=== PATIENT | male | born 1950 | race Caucasian/White ===

== ENCOUNTER → 2019-07-23 12:10 | Outpatient (CLI) | payer OTHER, SELFPAY ==
--- NOTE | 2019-07-23 | DI.US.S_ITS ---
PROCEDURE: US SCROTUM INDICATIONS: HYDROCELE TECHNIQUE: Real-time scanning was performed of the scrotum and testicles, with image documentation. Color and pulse Doppler interrogation was performed of both testicles. COMPARISON: None. FINDINGS: Right: Testicle is normal in size at 1.9 x 3.0 x 3.8 cm, and homogenous in echotexture. Epididymis is normal in overall size and morphology. No hydrocele or varicoceles there is a large bowel hernia extending into the scrotum displacing both testes to the far right.. Overlying scrotal skin is normal in thickness. Left: Testicle is normal in size at 1.6 x 3.5 x 3.5 cm, and homogeneous in echotexture. Epididymis is normal in overall size and morphology. No hydrocele or varicoceles but there is a large bowel herniation extending into the scrotum displacing both testes to the far right. Overlying scrotal skin is normal in thickness. Doppler: Color and pulse Doppler demonstrate normal and symmetric arterial flow in both testicles. IMPRESSION: Large bowel hernia into the scrotum displacing a testicles bilaterally from left to right. The patient reports that this clinical circumstance has been present chronically. CT scanning may be warranted for surgical leading. No acute pain reported by the patient. Rather, chronic symptomatology. Dictated by: Ethan Martinez M.D. on 07/23/2019 at 15:29 Approved by: Ethan Martinez M.D. on 07/23/2019 at 15:32
[2019-07-23 13:52] LABS: Add Manual Diff / Slide Review NO; Basophils Absolute Auto 100 /uL (0-100); Basophils Percent Auto 1.2 % (0-2); Eosinophils Absolute Auto 300 /uL (0-450); Hematocrit 44.3 % (41-53); Hemoglobin 15.1 g/dL (13.5-17.5); Lymphocytes Absolute Auto 1700 /uL (1100-4500); Lymphocytes Percent Auto 23.3 % (25-40); Mean Corpuscular HGB Conc 34.2 % (30-36); Mean Corpuscular Hemoglobin 29.8 PG (26-34); Mean Corpuscular Volume 87.2 fL (80-100); Monocytes Absolute Auto 700 /uL (0-900); Monocytes Percent Auto 9.6 % (3-14); Neutrophils Absolute Auto 4400 /uL (1500-7000); Neutrophils Percent Auto 61.9 % (50-75); Platelet Count 112 X10^3/uL (150-400); Red Blood Cell Count 5.08 X10^6/uL (4.5-5.9); Red Cell Distribution Width 14.3 % (11.6-14.8); White Blood Cell Count 7.1 X10^3/uL (4.5-11.0)
[2019-07-23 13:56] LABS: Alanine Aminotransferase 12 IU/L (<50); Albumin 4.6 g/dL (3.5-5.0); Albumin Globulin Ratio 1.4 (1.0-2.8); Alkaline Phosphatase 110 U/L (38-126); Aspartate Aminotransferase 31 IU/L (17-59); Bilirubin Total 1.3 mg/dL (0.2-1.3); Blood Urea Nitrogen 16 mg/dL (9-20); Calcium 9.9 mg/dL (8.4-10.2); Carbon Dioxide 29 mmol/L (22-32); Chloride 103 mmol/L (98-107); Cholesterol 216 mg/dL (140-199); Estimated Glomerular Filt Rate > 60.0 mL/min (>60); Globulin 3.2 g/dL (1.7-4.1); Glucose 102 mg/dL (80-110); HDL Cholesterol 54 mg/dL (40-60); HEMOLYSIS < 15 (0-50); LDL Cholesterol Calculated 142 mg/dL (<100); Potassium 4.9 mmol/L (3.4-5.1); Sodium 140 mmol/L (137-145); Total Protein 7.8 g/dL (6.3-8.2); Triglycerides 102 mg/dL (35-150)
[2019-07-23 18:23] LABS: Vitamin D 25 Hydroxy (D3) 19.6 ng/mL (30.0-100.0)
== END ==
PROVIDERS: PCP Physician Assistant; Visit Provider Physician Assistant
DX: N43.3 Hydrocele, unspecified (principal); N50.89 Other specified disorders of the male genital organs; K40.90 Unilateral inguinal hernia, without obstruction or gangrene, not specified as recurrent; I10 Essential (primary) hypertension; E78.2 Mixed hyperlipidemia
CPT/HCPCS: 36415; 76870; 80053; 80061; 82306; 85025

== ENCOUNTER → 2019-08-22 11:44 | Outpatient (CLI) | payer OTHER, SELFPAY | PROVIDERS: PCP Physician Assistant; Visit Provider Specialist | DX: Z01.818 Encounter for other preprocedural examination (principal); I49.9 Cardiac arrhythmia, unspecified; K40.90 Unilateral inguinal hernia, without obstruction or gangrene, not specified as recurrent | CPT/HCPCS: 93005; 99213 ==

== ENCOUNTER → 2019-09-11 05:30 | Outpatient (CLI) | payer OTHER, SELFPAY ==
--- NOTE | 2019-09-11 | DI.ECHO.S_ITS ---
[place] [facility] +---------+ : : [address] : : : : [id number] : : : : Phone: [phone]+ Echocardiogram Report + + :Name: KRISTINA WHEELER Study Date: 09/11/2019 Height: 67 in : :[facility] Weight: 222 lb : : Gender: Male BSA: 2.1 m2 : :: 1950 Age: 69 yrs BP: 168/82 mmHg: :Reason For Study: jing, hypertension : : Performed By: LRF : :Referring: AMOL NAVA : + + Interpretation Summary Left ventricular wall thickness is mildly increased. The left ventricular ejection fraction is normal. There are no focal wall motion abnormalities. Diastolic parameters suggest a relaxation abnormality of the left ventricle, consistent with probable normal filling pressures. The RV function is normal by visual evaluation. Pulmonary artery pressures cannot be estimated because of the lack of a measurable TR jet velocity. The left atrium is moderately dilated. No hemodynamically significant valvular abnormalities. The patient had frequent PVCs during the exam. No significant change compared to the prior echo. Procedure: A two-dimensional transthoracic echocardiogram with color flow and Doppler was performed. The study quality was technically adequate. Comparison is made with the echocardiogram of 04/20/2016. The patient was in normal sinus rhythm during the exam. The patient had frequent PVCs during the exam. Periods of trigeminy and bigeminy noted during exam. Left Ventricle: Left ventricular wall thickness is mildly increased. The left ventricle is normal in size. The ejection fraction is estimated to be 55- 60%. The left ventricular ejection fraction is normal. There are no focal wall motion abnormalities. Diastolic parameters suggest a relaxation abnormality of the left ventricle, consistent with probable normal filling pressures. Right Ventricle: The right ventricle is normal size. The RV function is normal by visual evaluation. Atria: The left atrium is moderately dilated. The right atrium is mildly dilated. There is no Doppler evidence for an interatrial shunt. Mitral Valve: The mitral valve is normal in structure and function. There is trace mitral regurgitation. Aortic Valve: The aortic valve is trileaflet. The aortic valve opens well. There is mild aortic valve sclerosis. There is discrete nodular thickening of the non- coronary cusp. No aortic regurgitation is present. Tricuspid Valve: The tricuspid valve is normal in structure and function. There is a trace or physiologic amount of tricuspid regurgitation. Pulmonary artery pressures cannot be estimated because of the lack of a measurable TR jet velocity. Pulmonic Valve: The pulmonic valve is not well visualized. There is no pulmonic valvular regurgitation. Great Vessels: The aortic root is borderline dilated. The ascending aorta is normal in size. The IVC is of normal diameter and collapses greater than 50% with a sniff. This suggests a low right atrial pressure of 3 mm Hg. Pericardium/ Pleura There is no pericardial effusion. There is an anterior echo-free space consistent with a fat pad. MMode/2D Measurements & Calculations LVIDd: 4.9 cm LVOT diam: 2.3 cm LVIDs: 3.9 cm Ao root diam: 3.9 cm FS: 19.7 % Aortic Jxn: 3.0 cm EPSS: 1.5 cm asc Aorta Diam: 3.3 cm IVSd: 1.1 cm LVPWd: 1.0 cm LV martins. diameter/BSA (cm/m^2): 2.3 LV sys. diameter/BSA (cm/m^2): 1.9 LA A2 area: 26.7 cm2 RA long axis: 5.5 cm LA A4 area: 26.0 cm2 RA area: 21.5 cm2 LA length (vol): 6.4 cm RA vol: 71.1 ml LA vol: 91.9 ml RA : 33.7 ml/m2 LA vol index: 43.5 ml/m2 IVC diam: 0.94 cm RVD1 (basal): 3.6 cm RVD2 (mid): 2.9 cm Doppler Measurements & Calculations Ao V2 max: 103.6 cm/sec LVOT Max Prosper: 89.2 cm/sec Ao V2 mean: 72.3 cm/sec LV V1 max P.2 mmHg Ao max P.3 mmHg LV V1 VTI: 21.4 cm Ao mean P.4 mmHg MARGOT(I,D): 4.0 cm2 Ao V2 VTI: 23.0 cm MARGOT(V,D): 3.7 cm2 sev ratio: 0.93 MARGOT indexed to BSA (cm^2/m^2): 1.9 MV E max prosper: 89.9 cm/sec PA V2 max: 87.2 cm/sec MV A max prosper: 103.5 cm/sec PA V2 mean: 57.0 cm/sec MV E/A: 0.87 PA mean P.5 mmHg Med Peak E' Prosper: 4.6 cm/sec PA pr(Accel): 15.8 mmHg E/E' med: 19.4 PA Accel Time: 0.15 sec Lat Peak E' Prosper: 8.0 cm/sec E/E' lat: 11.2 E/e' average: 15.3 MV dec time: 0.19 sec MV P1/2t: 52.7 msec MV P1/2t max prosper: 85.3 cm/sec SV(LVOT): 91.3 ml MVA(P1/2t): 4.2 cm2 Electronically signed by: Eh Moody M.D. on Reading Physician:09/11/2019 09:00 AM
== END ==
PROVIDERS: PCP Physician Assistant; Referring Provider Physician Assistant; Visit Provider Physician Assistant
DX: I35.8 Other nonrheumatic aortic valve disorders (principal); I49.9 Cardiac arrhythmia, unspecified; I10 Essential (primary) hypertension; R00.8 Other abnormalities of heart beat
CPT/HCPCS: 93306

== ENCOUNTER → 2019-10-12 13:00 | Outpatient (CLI) | payer OTHER, SELFPAY ==
[2019-10-12 13:45] LABS: Blood Urea Nitrogen 20 mg/dL (9-20); Calcium 9.4 mg/dL (8.4-10.2); Carbon Dioxide 25 mmol/L (22-32); Chloride 104 mmol/L (98-107); Estimated Glomerular Filt Rate > 60.0 mL/min (>60); Glucose 104 mg/dL (80-110); HEMOLYSIS < 15 (0-50); Potassium 4.7 mmol/L (3.4-5.1); Sodium 138 mmol/L (137-145)
== END ==
PROVIDERS: PCP Physician Assistant; Referring Provider Internal Medicine Cardiovascular Disease; Visit Provider Internal Medicine Cardiovascular Disease
DX: I10 Essential (primary) hypertension (principal)
CPT/HCPCS: 36415; 80048

== ENCOUNTER → 2019-12-07 09:46 | Outpatient (CLI) | payer OTHER, SELFPAY ==
[2019-12-07 11:47] LABS: Cholesterol 200 mg/dL (140-199); HDL Cholesterol 65 mg/dL (40-60); LDL Cholesterol Calculated 117 mg/dL (<100); Triglycerides 91 mg/dL (35-150)
== END ==
PROVIDERS: PCP Physician Assistant; Referring Provider Internal Medicine Cardiovascular Disease; Visit Provider Internal Medicine Cardiovascular Disease
DX: E78.5 Hyperlipidemia, unspecified (principal)
CPT/HCPCS: 36415; 80061

== ENCOUNTER → 2020-01-05 13:33 | Outpatient (CLI) | payer OTHER, SELFPAY ==
[2020-01-07 02:18] LABS: COVID19 Sendout Not Detected (Not Detect)
== END ==
PROVIDERS: PCP Physician Assistant; Visit Provider Physician Assistant
DX: Z20.828 Contact with and (suspected) exposure to other viral communicable diseases (principal); Z01.818 Encounter for other preprocedural examination
CPT/HCPCS: 87635

== ENCOUNTER 2020-01-08 06:51 | Observation (INO) | payer OTHER, SELFPAY ==
[2020-01-01 10:40] VITALS: BMI 34.9
[2020-01-08] VITALS (15 sets, daily range): BP systolic 125–177; BP diastolic 69–94; PULSE 68–89; RESP 9–19; TEMP 35.9–37.1; O2SAT 92–99; BMI 33.6
[2020-01-08] MEDS: LACTATED RINGERS 1,000 ML 42 ML IV ×2 (07:10→09:45)
[2020-01-08] MEDS: CEFAZOLIN 2 GM/100 ML FROZ.PIGGY IV ×2 (07:55→11:08)
--- NOTE | 2020-01-08 07:56 | P.HP_ITS ---
History of Present Illness History of Present Illness Date Patient Seen: 01/08/20 Time Patient Seen: 07:56 Chief complaint: [id number] LEFT INGUINAL HERNIA Narrative: Patient is a gentleman here for repair of a left inguinal hernia that he has had chronically. Causes local symptoms in his biggest problem is it is so large he can not ride a bicycle anymore. His operation was delayed from August because of a new diagnosis of atrial fibrillation. He has seen a cardi ologist and then evaluated. Patient History Medical History (Updated 01/08/20 @ 07:57 by Reid Woodruff MD) Atrial fibrillation (Acute) Bigeminy (Acute) Frequent PVCs (Acute) HTN (hypertension) (Acute) Left inguinal hernia (Acute) Family & Social History Family History Brother Hypertension Heart disease Son Lymphoma Social History: household members none Tobacco & Substance use: Smoking Status Former smoker alcohol intake former Substance Use Type does not use Meds Home Medications and Allergies Home Medications Medication Instructions Recorded Confirmed Type cholecalciferol (vitamin D3) 25 1,000 unit PO DAILY 08/22/19 01/08/20 History mcg (1,000 unit) capsule diltiazem HCl 360 mg PO DAILY 01/07/20 01/07/20 History losartan 100 mg PO DAILY 01/07/20 01/07/20 History rosuvastatin 2.5 mg PO DAILY 01/07/20 01/07/20 History Allergies Allergy/AdvReac Type Severity Reaction Status Date / Time No Known Drug Allergies Allergy Verified 01/08/20 07:48 Review of Systems Review of Systems Narrative: Patient has no chest pain breathing issues cough or cold asthma. Denies black or bloody bowel movements. No seizures or blackouts. Exam Vital Signs (past 8 hours): - 01/08/20 07:22 Temperature 98.6 F Pulse Rate 70 Respiratory Rate 16 Blood Pressure 172/72 H Pulse Oximetry 97 Oxygen Delivery Method Room Air Narrative Exam Narrative: Cooperative no apparent distress. His eyes are nonicteric. Neck is supple. No bruit in the neck. His lungs are clear to auscultation no rales or rhonchi heart distant heart tones I do not hear a murmur gallop. His rate and rhythm a very regular this morning. Abdomen is protuberant soft. No ventral hernias appreciated no masses appreciated. Patient has a huge left inguinal hernia extending into his left hemiscrotum. This is not reducible. No hernia on the right was noted. Assessment & Plan Assessment & Plan narrative: Patient with a left inguinal hernia incarcerated for repair. I have discussed the procedure with him risks of bleeding infection injury to nerves which could cause chronic intermittent or continuous pain or numbness, injury to the vas deferens, injury to the testicle and recurrence were all discussed with him I explained to him the to the large size recurrence rates are little higher. I do plan to use mesh and he is agreeable to that. I also talked to him about the limitations of the operation afterward. He is also aware that the left hemiscrotum always be larger than normal. All questions were answered and will proceed accordingly
--- NOTE | 2020-01-08 08:15 | PM.PREOP ---
Pre-operative Note COVID-19 COVID-19 status: Negative Result date/Date tested (Pos, Neg/Pending): 01/06/20 Interval Note History & Physical reviewed/Exam performed by Physician: Yes Changes to H&P: No
--- NOTE | 2020-01-08 08:30 | SUR.OPER ---
Supine on padded OR bed, head on pillow, arms secured on padded arm boards at <90 degrees abduction, legs uncrossed, safety belt at thigh, tape over blanket over lower legs.
[2020-01-08] MEDS: BUPIVACAINE 0.5% (PF) VIAL 30 ML INJ (08:39)
[2020-01-08] MEDS: fentaNYL 100 MCG/2 ML INJ IV (11:37)
--- NOTE | 2020-01-08 11:38 | SUR.PHASEI ---
medicated for pain, unable to give a number but did desire medication. Returned to sleep
--- NOTE | 2020-01-08 12:02 | PM.OP.1 ---
Operative Date/Time/Diagnoses Date of procedure: 01/08/20 Time of procedure: 11:20 Pre-op diagnosis: Incarcerated left inguinal hernia extending well into the scrotum Post-op diagnosis: same (Contained a large amount of sigmoid colon that was adherent to the hernia sac.) Procedure & Clinicians Procedure: Repair with an ileopubic tract repair and an onlay of mesh (Earl) repair Same procedure as scheduled: Yes Indications: Huge symptomatic hernia left inguinal extending into the scrotum Surgeon: Reid Woodruff Facilities Maintenance Engineer: Chris Lindsay Anesthesia Type: General Operative Notes Findings: Large amount of sigmoid colon adhesed into the sac making it impossible to reduce this hernia. Very difficult operation with obliteration of much of the floor. This was a very difficult operation with 2 surgeons involved. It took 3 times longer than normal to perform this operation then a routine inguinal hernia. Closure Type: primary Specimen(s): none sent Prosthetic devices, grafts, tissues, transplants, or devices: 2 x 4 piece of mesh Prolene Estimated Blood Loss (mL): 50 Blood products transfused: none Procedure in detail: The patient was placed supine on the operating room table and underwent general LMA anesthesia. He was prepped and draped in the usual fashion including scrotum. Transverse incision was made overlying is internal ring and carried down level the external oblique. The external oblique was opened parallel with its fibers through the external ring. We encountered a huge cord and hernia sac that I could not dissect up and therefore chose to open the cremaster and the sac anteriorly and try to reduce the contents. This proved quite challenging. The contents were large loop of sigmoid colon and its mesentery. The I had to detach it using cautery and sharp dissection from adhesions to the hernia sac well into the scrotum. We finally freed it up and then could not reduce it entirely because the opening was not large enough therefore we had to divide muscle in order to increase the size of the opening into the peritoneal cavity so it could be completely reduced. Once this was accomplished were left with the you had hernia sac of peritoneum and a challenge to close the peritoneum and repair the hernia. First we identified the cord structures and them proximally as best we could from the preperitoneal structures and the attenuated floor. When we felt we had dissected proximally far enough to create a new internal ring we removed much of the hernia sac in order to make closure of the peritoneum possible. The peritoneum was closed a running 2 0 silk and really reduced this and the preperitoneal structures which had come into the field during repair back beneath the attenuated muscle wall. A nervous structure was encountered her that would have to be incorporated into the repair and therefore it was transected and removed. Identifying medial floor and lateral floor / ileopubic tract sutures were placed from the medial floor to the ileopubic tract and the edge of inguinal ligament. These were tied as we went until we had reformed an internal ring that was not good but not tight against the cord structures. The tip of a peon clamp any easily fit adjacent to it. With this accomplished a relaxing incision was made in the posterior lamella of the anterior rectus sheath. This took tension off of the sutured repair. I then placed placed a piece of mesh after Earl over this repair suturing it at the pubic tubercle, the inguinal ligament, the posterior lamella the rectus sheath medial to the relaxing incision, and superior and Lateral to the cord.. The testicle was pulled down and the external oblique was reapproximated with running 3 0 Vicryl suture. The subcu was closed with interrupted 3 0 Vicryl suture. The skin was closed with timbo. Dressing was applied, the patient was awakened and taken the recovery room good condition. Local anesthetic was infiltrated prior to closure of the skin. The testicle was pulled back down all the way to the base of the scrotum. The cord structures felt to be in normal anatomic position without twisting. Complications: none Post-operative Condition: stable Disposition: PACU Plan for aftercare: Due to the amount of dissection involved with the colon and the large long operation patient will be brought in for observation overnight.
[2020-01-08] MEDS: OXYCODONE/ACETAMINOPHEN 5/325 TABLET 1 TAB PO (12:04)
--- NOTE | 2020-01-08 12:12 | SUR.PHASEI ---
report called to floor, waiting for patient room to be cleaned for transfer. HOB elevated, eating yogurt. Drowsy, oriented, stating I'm sure glad you guys know what you're doing. Hand off to Yasmin Roe RN
[2020-01-08] MEDS: LACTATED RINGERS 1,000 ML 125 ML IV (13:36)
[2020-01-08] MEDS: dilTIAZem CD 180 MG CAP 360 MG PO (13:37)
--- NOTE | 2020-01-08 15:47 | PC.NURSE ---
Post-op: Late entry Arrived to room 218 at 1235. A&O X3. Dressing to L groin C/D/I with ice pack in place over gown. Patient denied pain as long as I don't move, declined Tylenol and/or Oxycodone when offered. Denies N/V. BT+, flatus+. Advanced to regular diet for dinner. Lungs CTA, HRR. 2-3+ edema to BLE's which patient reports is chronic. Also reports chronic numbness/tingling in bilateral feet. IVF per order, site in R FA WNL. SCD's to BLE's. Given urinal, encouraged to call for assist OOB when he needs to void. Oriented to room and call light. Belongings within reach, bed alarm on.
[2020-01-08] MEDS: GABAPENTIN 300 MG CAPSULE PO (20:11)
[2020-01-08] MEDS: ROSUVASTATIN 10 MG TABLET 2.5 MG PO (20:12)
[2020-01-08] MEDS: LOSARTAN 50 MG TABLET 100 MG PO (20:12)
[2020-01-09 00:13] VITALS: BP 159/92; PULSE 64; RESP 18; TEMP 36.8; O2SAT 97
[2020-01-09 05:00] VITALS: BP 149/83; PULSE 77; RESP 18; TEMP 36.7; O2SAT 96
[2020-01-09] MEDS: LOSARTAN 50 MG TABLET 100 MG PO (08:20)
[2020-01-09] MEDS: SENNOSIDES 8.6 MG TABLET 17.2 MG PO (08:20)
[2020-01-09] MEDS: dilTIAZem CD 180 MG CAP 360 MG PO (08:20)
[2020-01-09] MEDS: ROSUVASTATIN 10 MG TABLET 2.5 MG PO (08:20)
[2020-01-09] MEDS: GABAPENTIN 300 MG CAPSULE PO (08:21)
[2020-01-09 09:18] VITALS: BP 151/57; PULSE 70; RESP 16; TEMP 37.1; O2SAT 94
[2020-01-09] MEDS: BISACODYL 10 MG SUPP PR (11:42)
--- NOTE | 2020-01-09 12:03 | P.DS_ITS ---
History of Present Illness History of Present Illness Date Patient Seen: 01/09/20 Time Patient Seen: 12:03 Chief complaint: [id number] LEFT INGUINAL HERNIA Narrative: Patient is a gentleman here for repair of a left inguinal hernia that he has had chronically. Causes local symptoms in his biggest problem is it is so large he can not ride a bicycle anymore. His operation was delayed from August because of a new diagnosis of atrial fibrillation. He has seen a cardi ologist and then evaluated. Discharge Providers Provider Discharge Date: 01/09/20 Primary care physician: Stacey Helton PA-C Consults: 01/08/20 13:16 Consult to Discharge Planning Routine Comment: Discharge provider: Reid Woodruff MD Summary Hospital Course Discharge Diagnosis: Huge incarcerated left inguinal hernia chronic History of cardiac dysrhythmia(intermittent atrial fibrillation) chronic treated with medication History of alcoholism, Along with alcohol withdrawal, alcoholic hepatitis, possible alcoholic cirrhosis. Patient no longer uses alcohol. Obesity with a BMI of 33.7. Exam Vital Signs (past 8 hours): - 01/09/20 05:00 01/09/20 09:18 Temperature 98.1 F 98.8 F Pulse Rate 77 70 Respiratory Rate 18 16 Blood Pressure 149/83 H 151/57 H Pulse Oximetry 96 94 Oxygen Delivery Method Nasal Cannula Oxygen Flow Rate 0 Narrative Exam Narrative: Cooperative no apparent distress. Alert and oriented. Lungs are clear to auscultation no rales or rhonchi. Heart regular rate and rhythm at this time. No murmur gallop. Abdomen is distended and protuberant.(patient states this is his normal state.) There is some bruising about the incision left groin. The left hemiscrotum has some mild edema but there is no evidence of bleeding. Discharge Plan Discharge Plan Patient Disposition: Home Discharge comment: Your operation went well. You have some bruising around the incision which is not unexpected. If it becomes red please notify Dr. Woodruff/his office immediately. You may get a little redness around the timbo and that is not unusual. But redness spreading out away from the wound is unusual and you should let Dr. Woodruff know about that. Please use a laxative like milk of magnesia if you are having problems moving your bowels. Discharge Med Rec/Prescriptions Prescriptions: New oxycodone 5 mg tablet See Rx Instructions .ROUTE .COMPLEX PRN (Reason: painful procedure) Qty: 20 RF: 0 Continued cholecalciferol (vitamin D3) 1,000 unit capsule 1,000 unit PO DAILY RF: 0 diltiazem HCl 360 mg Capsule,Extended Release 24 Hr 360 mg PO DAILY RF: 0 losartan 100 mg Tablet 100 mg PO DAILY RF: 0 rosuvastatin 5 mg Tablet 2.5 mg PO DAILY RF: 0 Follow up/Referrals: Stacey Helton PA-C [Primary Care Provider] - Reid Woodruff MD [Physician] - As previously scheduled (If you do not have an appointment call my office and make an appointment to see me in about 10-12 days. If you do have an appointment please keep it. If you need to reach a doctor please call our office. If you reach an answering machine after hours listen to the entire message and at the end you will be connected with our page oxyacetylene torch operator. They will page the doctor on-call.) Discharge Orders: Discharge (Order); Ordered 01/09/20 Ordered By: Reid Woodruff Provider Discharge Instructions Diet: Diet as Tolerated Activity: Do not lift anything over 10 lb or strain for the next 6 weeks at least. You had a huge hernia and recurrence would be very difficult to repair. You may walk leisurely walk on flat surfaces. No pool or tub until you see your doctor and he gives me permission. Skin/Wound/Dressing Care Report to your healthcare provider any signs of infection, such as:: chills, fever, increased pain, unusual drainage and unusual redness Dressing: You may remove her dressing Tuesday morning and get in the shower. You may want to keep a dressing over it so the timbo do not catch on your clothing. Visit Report/Discharge Packet Instructions: CYRUS for Groin Hernia Discharge Data Primary Care Provider: Stacey Helton Attending Provider: Reid Woodruff Quality VTE Deep Vein Thrombosis/Pulmonary Embolism Present on Admission: No
[2020-01-09 13:32] VITALS: BP 145/58; PULSE 68; RESP 15; O2SAT 95
--- NOTE | 2020-01-09 13:49 | PC.NURSE ---
Received order from Dr. Woodruff to DC pt today. Pt received suppository around 1120 pt had small BM afterwards, had passed gas. VSS, Lungs CTA, BT present x4 denies pain only discomfort with certain movements. Dressing on his left groin has been changed timbo and wound area CDI, redness around incision site no drainage. Rt hand IV line discontinued and removed, patient tolerated the procedure. Went through all his DC packet and instructions patient verbalized understanding. Advised to call PCP and Dr. Woodruff to schedule a follow up appointment. Rx for Oxycodone is given and advised to take to his preferred pharmacy. Patient teaching given regarding his pain medication and wound care. Patient sitting in his recliner waiting for his son to pick him up.
--- NOTE | 2020-01-09 14:38 | CM.IDA ---
Initial DCP Assessment Note: Patient is a 69 yo male, resident of [place]. Patient is POD#1 from repair of a left inguinal hernia. PCP: Stcaey Helton Payer: Nhi CASTELLON Reviewed chart. Met w/patient to introduce role. Patient is eager to DC home today, and Dr Woodruff has completed the discharge. Patient lives alone, is active and indp. at baseline and explains his son will be staying with him for a few nights to assist as needed. P: DC today, home w/family via pov, no SW needs identified RYANN Montemayor Discharge Planning/Care Management CM Discharge Assessment Start: 01/09/20 14:35 Freq: Status: Active Protocol: Document 01/09/20 14:35 DARREN (Rec: 01/09/20 14:38 DARREN [email or web address]) Discharge Planning Assessment Assigned Water Restoration Technician RYANN Wong DPOA/Assigned Designee Name gage Razo Contact Information [phone] Advance Directives? No History Provided By Patient Prior Living Arrangements House Household Members none Type of transporation used prior to Drives own vehicle admit Independent with ADL's Yes Is patient alert and oriented? Yes Barriers to Discharge No Discharge Plan Home Transportation Arrangement Family Referrals Initiated None needed
== END 2020-01-09 14:53 | disposition home or self-care (01) ==
LOC: OR 06:58 → AC 10:54
PROVIDERS: Admitting Provider Specialist; PCP Physician Assistant; Referring Provider Specialist; Visit Provider Specialist
PROC: (CPT 49507; principal; 2020-01-08 07:45)
DX: K40.30 Unilateral inguinal hernia, with obstruction, without gangrene, not specified as recurrent (principal); I10 Essential (primary) hypertension; E78.5 Hyperlipidemia, unspecified; I48.91 Unspecified atrial fibrillation
CPT/HCPCS: 49507; C1781; G0378; J0690; J1100; J1170; J1885; J2250; J2405; J2704; J3010

== ENCOUNTER → 2020-01-23 09:08 | Outpatient (CLI) | payer OTHER, SELFPAY ==
[2020-01-10 13:01] VITALS: BMI 33.6
[2020-01-23 10:10] LABS: Add Manual Diff / Slide Review NO; Basophils Absolute Auto 100 /uL (0-100); Eosinophils Absolute Auto 300 /uL (0-450); Eosinophils Percent Auto 3.1 % (2-4); Hematocrit 34.2 % (41-53); Hemoglobin 12.1 g/dL (13.5-17.5); Lymphocytes Absolute Auto 1400 /uL (1100-4500); Mean Corpuscular HGB Conc 35.4 % (30-36); Mean Corpuscular Hemoglobin 30.2 PG (26-34); Mean Corpuscular Volume 85.2 fL (80-100); Monocytes Absolute Auto 700 /uL (0-900); Monocytes Percent Auto 8.4 % (3-14); Neutrophils Absolute Auto 6200 /uL (1500-7000); Neutrophils Percent Auto 71.5 % (50-75); Platelet Count 137 X10^3/uL (150-400); Red Blood Cell Count 4.01 X10^6/uL (4.5-5.9); Red Cell Distribution Width 13.7 % (11.6-14.8); White Blood Cell Count 8.6 X10^3/uL (4.5-11.0)
[2020-01-23 10:23] LABS: Hemoglobin A1C% w Est Avg Glu 5.5 % (4.0-6.0)
[2020-01-23 10:44] LABS: Alanine Aminotransferase 13 IU/L (<50); Albumin 4.2 g/dL (3.5-5.0); Albumin Globulin Ratio 1.4 (1.0-2.8); Alkaline Phosphatase 145 U/L (38-126); Aspartate Aminotransferase 25 IU/L (17-59); BUN Creatinine Ratio 20.2 (6-22); Bilirubin Total 0.6 mg/dL (0.2-1.3); Blood Urea Nitrogen 19 mg/dL (9-20); Calcium 10.1 mg/dL (8.4-10.2); Carbon Dioxide 25 mmol/L (22-32); Chloride 104 mmol/L (98-107); Estimated Glomerular Filt Rate > 60.0 mL/min (>60); Globulin 3.1 g/dL (1.7-4.1); Glucose 98 mg/dL (80-110); HEMOLYSIS < 15 (0-50); Potassium 4.3 mmol/L (3.4-5.1); Sodium 138 mmol/L (137-145); Total Protein 7.3 g/dL (6.3-8.2)
[2020-01-23 10:49] LABS: Vitamin D 25 Hydroxy (D3) 36.6 ng/mL (30.0-100.0)
[2020-01-23 11:15] LABS: TSH w/ Reflex to FT4 1.26 uIU/mL (0.47-4.68)
[2020-01-23 11:33] LABS: Vitamin B12 340 pg/mL (239-931)
[2020-01-25 14:36] LABS: Albumin 3.8 g/dL (2.9-4.4); Alpha-1-Globulin 0.2 g/dL (0.0-0.4); Alpha-2-Globulin 0.8 g/dL (0.4-1.0); Gamma Globulin 0.8 g/dL (0.4-1.8); Globulin Total 2.7 g/dL (2.2-3.9); Protein, Total 6.5 g/dL (6.0-8.5)
== END ==
PROVIDERS: PCP Physician Assistant; Referring Provider Physician Assistant; Visit Provider Physician Assistant
DX: D47.2 Monoclonal gammopathy (principal); E53.8 Deficiency of other specified B group vitamins; R73.01 Impaired fasting glucose; G60.9 Hereditary and idiopathic neuropathy, unspecified; I10 Essential (primary) hypertension; E03.9 Hypothyroidism, unspecified; E55.9 Vitamin D deficiency, unspecified
CPT/HCPCS: 36415; 80053; 82306; 82607; 83036; 84155; 84165; 84443; 85025

== ENCOUNTER → 2020-03-17 11:47 | Outpatient (CLI) | payer OTHER, SELFPAY ==
[2020-01-10 13:01] VITALS: BMI 33.6
--- NOTE | 2020-03-17 11:48 | DI.US.S_ITS ---
PROCEDURE: US PERIPH VENOUS LOW EXTREM RT INDICATIONS: EDEMA TECHNIQUE: Real-time imaging, as well as color and pulse Doppler interrogation, were performed of the lower extremity deep veins from the inguinal ligament to the popliteal fossa. COMPARISON: None. FINDINGS: The common femoral, femoral and popliteal veins are normally compressible, and free of intraluminal thrombus. Color and pulse Doppler demonstrate normal phasic intraluminal flow. There is normal augmentation response to distal compression maneuver. IMPRESSION: No DVT in the right lower extremity. Dictated by: Rustam Foreman M.D. on 03/17/2020 at 12:27 Approved by: Rustam Foreman M.D. on 03/17/2020 at 12:28
== END ==
PROVIDERS: PCP Physician Assistant; Referring Provider Internal Medicine Hematology & Oncology; Visit Provider Internal Medicine Hematology & Oncology
DX: R60.0 Localized edema (principal); D47.2 Monoclonal gammopathy; M79.89 Other specified soft tissue disorders
CPT/HCPCS: 93971

== ENCOUNTER → 2020-07-17 15:11 | Outpatient (CLI) | payer OTHER, SELFPAY ==
[2020-01-10 13:01] VITALS: BMI 33.6
== END ==
PROVIDERS: PCP Physician Assistant; Referring Provider General Practice; Visit Provider General Practice
DX: K74.60 Unspecified cirrhosis of liver (principal)
CPT/HCPCS: 36415; 85610

== ENCOUNTER → 2020-10-07 11:13 | Outpatient (CLI) | payer OTHER, SELFPAY ==
[2020-01-10 13:01] VITALS: BMI 33.6
[2020-10-07 12:20] LABS: COVID19 -Nasal RAPID Negative (Negative)
== END ==
PROVIDERS: PCP Physician Assistant; Visit Provider Specialist
DX: Z20.822 Contact with and (suspected) exposure to COVID-19 (principal)
CPT/HCPCS: 87635; C9803

== ENCOUNTER 2020-10-08 10:12 | Day surgery (SDC) | payer OTHER, SELFPAY ==
[2020-01-10 13:01] VITALS: BMI 33.6
[2020-10-08] VITALS (8 sets, daily range): BP systolic 138–157; BP diastolic 59–77; PULSE 56–75; RESP 12–20; TEMP 36.2–36.3; O2SAT 96–98; BMI 32.3
--- NOTE | 2020-10-08 | DI.RAD.S_ITS ---
PROCEDURE: XR CHEST 1V INDICATIONS: POST PORT A CATH TECHNIQUE: One view of the chest was acquired. COMPARISON: [facility], , CHEST 1 VIEW, 04/20/2016, 11:24. [facility], , CHEST 2 VIEW, 04/19/2016, 9:57. FINDINGS: Surgical changes and devices: Normal positioning of Port-A-Cath, without pneumothorax.. Lungs and pleura: Lungs are difficult to accurately assess due to relatively prominent reduced inspiratory volume. There is either mild pulmonary edema or crowding of bronchovascular markings producing reduced quality of visualization across the lungs bilaterally. A Port-A-Cath has been placed in normal position without pneumothorax.. No pleural effusions or pneumothorax. Mediastinum: Mediastinal contours appear normal. Heart size is normal. Bones and chest wall: No suspicious bony lesions. Overlying soft tissues appear unremarkable. IMPRESSION: Normal positioning of Port-A-Cath, without pneumothorax. Reduced inspiratory volume bilaterally. Dictated by: Ethan Martinez M.D. on 10/08/2020 at 13:40 Approved by: Ethan Martinez M.D. on 10/08/2020 at 13:57
[2020-10-08] MEDS: LACTATED RINGERS 1,000 ML 42 ML IV (10:54)
--- NOTE | 2020-10-08 11:53 | PM.HP.1 ---
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 He is about to undergo chemotherapy and I was asked to place a port. He is right-hand dominant. No metastatic disease to his lungs. Patient History Medical History Atrial fibrillation Bigeminy Cirrhosis Edema Frequent PVCs GERD (gastroesophageal reflux disease) Hard of hearing Hepatitis HTN (hypertension) Left inguinal hernia Surgical History H/O left inguinal hernia repair (~01/08/20) History of colonoscopy with polypectomy S/P right colectomy (~08/12/20) Family & Social History Family History Brother Hypertension Heart disease Son Lymphoma Social History: household members none Tobacco & Substance use: Tobacco type cigarettes Smoking Status Former smoker alcohol intake former Substance Use Type does not use Meds Home Medications and Allergies Home Medications Medication Instructions Recorded Confirmed Type diltiazem HCl 360 mg PO DAILY 01/07/20 10/08/20 History losartan 100 mg PO DAILY 01/07/20 10/08/20 History rosuvastatin 2.5 mg PO DAILY 01/07/20 10/08/20 History chlorthalidone 25 mg PO DAILY 04/10/20 10/08/20 History cholecalciferol (vitamin D3) 50 mcg PO DAILY 10/08/20 10/08/20 History [Vitamin D3] Allergies Allergy/AdvReac Type Severity Reaction Status Date / Time No Known Drug Allergies Allergy Verified 10/08/20 10:34 Review of Systems Review of Systems Narrative: Patient denies any heart or breathing problems. No cough or cold. No chest pain but he does have hypertension. Does have a history of cirrhosis. Exam Narrative Exam Narrative: Cooperative no apparent distress. Eyes nonicteric. Neck is supple. No scars. Lungs are clear to auscultation no rales or rhonchi. Heart very distant tones. No murmur heard. Abdomen is protuberant soft. He has multiple scars on his abdominal wall from a robotic procedure and eschar across his lower mid abdomen transversely. Assessment & Plan Assessment & Plan narrative: Patient with a colon cancer metastatic to lymph nodes for Port-A-Cath. I have discussed the operation with him. Discussed the nature of a port. Risks of bleeding, infection, lung collapse which might require a chest tube, and DVT which could cause arm swelling or pulmonary embolism were all discussed with him. He appears to understand wished to proceed. He was instructed that if he developed arm swelling to let his doctors know. Will place it on his left not dominant side. There is no rash or skin lesion in that area. Will place either in the subclavian or in the internal jugular if possible
--- NOTE | 2020-10-08 12:12 | PM.PREOP ---
Pre-operative Note COVID-19 COVID-19 status: Negative Result date/Date tested (Pos, Neg/Pending): 10/07/20 Interval Note History & Physical reviewed/Exam performed by Physician: Yes Changes to H&P: No
[2020-10-08] MEDS: CEFAZOLIN 2 GM/100 ML FROZ.PIGGY IV (12:22)
--- NOTE | 2020-10-08 12:49 | SUR.OPER ---
Supine on padded OR bed, head on pillow, arm padded and tucked at side, legs uncrossed, safety belt at thigh, tape over blanket over lower legs .
[2020-10-08] MEDS: LIDOCAINE 1% 30 ML INJ (12:55)
[2020-10-08] MEDS: HEPARIN 5,000 UNIT, SODIUM CHLORIDE 0.9% 50 ML IV (12:56)
--- NOTE | 2020-10-08 13:23 | P.OP_ITS ---
Operative Date/Time/Diagnoses Date of procedure: 10/08/20 Time of procedure: 13:23 Pre-op diagnosis: Colon cancer metastatic to lymph nodes Post-op diagnosis: same Procedure & Clinicians Procedure: Left subclavian Port-A-Cath. Same procedure as scheduled: Yes Indications: Need for IV access for chemotherapy Surgeon: Reid Woodruff Click Yes if Unassisted: Yes Anesthesia Type: General Operative Notes Findings: Tip appeared to be in the SVC. Patient appears to have a large globular heart. Closure Type: primary Specimen(s): none sent Prosthetic devices, grafts, tissues, transplants, or devices: High profile Port-A-Cath Applied: catheter Estimated Blood Loss (mL): 7 Blood products transfused: none Procedure in detail: Patient is placed supine on the operating room table unde rwent general LMA anesthesia. A roll was placed between his shoulder blades and he was prepped and draped in the usual fashion. Local anesthetic was infiltrated in field block fashion needs left clavicle. Transverse incision was made and carried into subcu fat. A pocket was created inferior to the incision to hold the port. The patient was placed into Trendelenburg and the needle was inserted on 1st attempt into the subclavian vein. The guidewire was passed through the needle and the needle was removed. The port was placed into the pocket and the length tapered to what appeared to be in appropriate length. It was difficult to tell because his large globular heart. After tapering the length of the catheter the guidewire was used to pass a dilator and introducer over it. The guidewire and dilator were removed leaving the introducer in place. The catheter was passed through the introducer and the introducer peeled away leaving the catheter tip in what appeared to be the superior vena cava. The port was aspirated and flushed with heparinized saline. It was fixed to the chest wall with interrupted 2 0 silk sutures. The subQ was closed with interrupted 3-0 Vicryl and the skin was closed a running 4-0 Vicryl subcuticular stitch and Steri-Strips. Dressing was applied the patient was taken the recovery area in good condition. Complications: none Post-operative Condition: stable Disposition: PACU
--- NOTE | 2020-10-08 14:07 | SUR.PHASEII ---
Pt up to bathroom ambulatory without difficulty. Waiting for pickup from son. VSS. AOx4.
== END 2020-10-08 14:48 | disposition home or self-care (01) ==
PROVIDERS: PCP Physician Assistant; Referring Provider Specialist; Visit Provider Specialist
PROC: (CPT 36561; principal; 2020-10-08 12:15)
DX: C18.9 Malignant neoplasm of colon, unspecified (principal); Z45.2 Encounter for adjustment and management of vascular access device; K21.9 Gastro-esophageal reflux disease without esophagitis; I10 Essential (primary) hypertension; K74.60 Unspecified cirrhosis of liver; N18.9 Chronic kidney disease, unspecified; D64.9 Anemia, unspecified
CPT/HCPCS: 36561; 71045; 76000; C1788; J0690; J1100; J1644; J2405; J2704; J3010

== ENCOUNTER → 2020-11-11 11:00 | Outpatient (CLI) | payer OTHER, SELFPAY ==
[2020-01-10 13:01] VITALS: BMI 33.6
[2020-11-11 11:22] LABS: COVID19 -Nasal RAPID Negative (Negative)
== END ==
PROVIDERS: PCP Physician Assistant; Visit Provider Physician Assistant
DX: R05 Cough (principal); R09.89 Other specified symptoms and signs involving the circulatory and respiratory systems; Z20.822 Contact with and (suspected) exposure to COVID-19
CPT/HCPCS: 87635

== ENCOUNTER → 2020-11-27 10:17 | Outpatient (CLI) | payer MEDICARE, SELFPAY ==
[2020-11-27] MEDS: COVID-19 VACC #1, MRNA(MOD) 100 MCG/0.5 ML VIAL IM (10:36)
== END ==
PROVIDERS: Visit Provider Internal Medicine
DX: Z23 Encounter for immunization (principal)
CPT/HCPCS: 0011A; 91301

== ENCOUNTER → 2020-12-25 08:42 | Outpatient (CLI) | payer MEDICARE, SELFPAY ==
[2020-01-10 13:01] VITALS: BMI 33.6
[2020-12-25] MEDS: COVID-19 VACC #2, MRNA(MOD) 100 MCG/0.5 ML VIAL IM (08:58)
== END ==
PROVIDERS: PCP Physician Assistant; Visit Provider Internal Medicine
DX: Z23 Encounter for immunization (principal)
CPT/HCPCS: 0012A; 91301

== ENCOUNTER 2021-02-14 17:43 | Emergency (ER) | payer OTHER, SELFPAY ==
[2020-01-10 13:01] VITALS: BMI 33.6
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
[2021-02-14 17:55] VITALS: BP 168/74; PULSE 71; RESP 20; TEMP 36.8; O2SAT 99; BMI 32.5
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
[2021-02-14] MEDS: MORPHINE 4 MG/ML INJ IM (18:35)
[2021-02-14] MEDS: HYDROCODONE/ACET 5/325 PREPACK 1 BOTTLE MISC (19:20)
== END 2021-02-14 19:29 | disposition home or self-care (01) ==
PROVIDERS: Emergency Provider Emergency Medicine; PCP Physician Assistant
DX: S42.001A Fracture of unspecified part of right clavicle, initial encounter for closed fracture (principal); S22.41XA Multiple fractures of ribs, right side, initial encounter for closed fracture; W19.XXXA Unspecified fall, initial encounter
CPT/HCPCS: 71101; 73030; 96372; 99283; 99284; J2270

== ENCOUNTER → 2021-02-19 16:31 | Outpatient (CLI) | payer OTHER, SELFPAY ==
[2020-01-10 13:01] VITALS: BMI 33.6
[2021-02-19 17:45] LABS: Add Manual Diff / Slide Review NO; Basophils Absolute Auto 0 /uL (0-100); Basophils Percent Auto 0.8 % (0-2); Eosinophils Absolute Auto 100 /uL (0-450); Eosinophils Percent Auto 1.3 % (2-4); Hematocrit 34.2 % (41-53); Hemoglobin 11.6 g/dL (13.5-17.5); Lymphocytes Absolute Auto 1100 /uL (1100-4500); Lymphocytes Percent Auto 21.6 % (25-40); Mean Corpuscular Hemoglobin 31.6 PG (26-34); Mean Corpuscular Volume 92.8 fL (80-100); Monocytes Absolute Auto 700 /uL (0-900); Monocytes Percent Auto 14.4 % (3-14); Neutrophils Absolute Auto 3100 /uL (1500-7000); Neutrophils Percent Auto 61.9 % (50-75); Platelet Count 91 X10^3/uL (150-400); Red Blood Cell Count 3.68 X10^6/uL (4.5-5.9); Red Cell Distribution Width 16.4 % (11.6-14.8)
[2021-02-19 17:55] LABS: BUN Creatinine Ratio 28.7 (6-22); Blood Urea Nitrogen 25 mg/dL (9-20); Calcium 9.4 mg/dL (8.4-10.2); Carbon Dioxide 28 mmol/L (22-32); Chloride 104 mmol/L (98-107); Cholesterol 161 mg/dL (140-199); Estimated Glomerular Filt Rate > 60.0 mL/min (>60); Glucose 102 mg/dL (80-110); HDL Cholesterol 84 mg/dL (40-60); HEMOLYSIS < 15 (0-50); LDL Cholesterol Calculated 61 mg/dL (<100); Potassium 3.8 mmol/L (3.4-5.1); Sodium 138 mmol/L (137-145); Triglycerides 80 mg/dL (35-150)
== END ==
PROVIDERS: PCP Physician Assistant; Referring Provider Internal Medicine Cardiovascular Disease; Visit Provider Internal Medicine Cardiovascular Disease
DX: I10 Essential (primary) hypertension (principal)
CPT/HCPCS: 36415; 80048; 80061; 85025

== ENCOUNTER → 2021-03-09 09:13 | Outpatient (CLI) | payer OTHER, SELFPAY ==
[2020-01-10 13:01] VITALS: BMI 33.6
--- NOTE | 2021-03-09 09:14 | DI.US.S_ITS ---
PROCEDURE: US [facility] VENOUS LOW EXTREM BI INDICATIONS: LEG SWELLING. RIGHT > LEFT. TECHNIQUE: Real-time imaging, as well as color and pulse Doppler interrogation, were performed of the deep veins of both legs from the inguinal ligament to the popliteal fossa. COMPARISON: [facility], , US [facility] VENOUS LOW EXTREM RT, 03/17/2020, 12:01. FINDINGS: Right: The common femoral, femoral and popliteal veins are normally compressible, and free of intraluminal thrombus. Color and pulse Doppler demonstrate normal phasic intravascular flow. There is normal augmentation response to distal compression maneuver. Left: The common femoral, femoral and popliteal veins are normally compressible, and free of intraluminal thrombus. Color and pulse Doppler demonstrate normal phasic intravascular flow. There is normal augmentation response to distal compression maneuver. Bilateral calf and ankle edema can be seen. IMPRESSION: Negative for deep venous thrombosis. Dictated by: Estuardo Dominguez M.D. on 03/09/2021 at 9:23 Approved by: Estuardo Dominguez M.D. on 03/09/2021 at 9:23
== END ==
PROVIDERS: PCP Physician Assistant; Referring Provider Internal Medicine Hematology & Oncology; Visit Provider Internal Medicine Hematology & Oncology
DX: R22.43 Localized swelling, mass and lump, lower limb, bilateral (principal); M79.89 Other specified soft tissue disorders
CPT/HCPCS: 93970

== ENCOUNTER → 2021-10-14 09:21 | Outpatient (CLI) | payer OTHER, SELFPAY ==
[2020-01-10 13:01] VITALS: BMI 33.6
[2021-10-14 10:23] LABS: COVID19 -Nasal RAPID Negative (Negative)
== END ==
PROVIDERS: PCP Physician Assistant; Visit Provider Surgery
DX: Z01.812 Encounter for preprocedural laboratory examination (principal); Z20.822 Contact with and (suspected) exposure to COVID-19
CPT/HCPCS: 87635; C9803

== ENCOUNTER 2021-10-15 08:17 | Day surgery (SDC) | payer OTHER, SELFPAY ==
[2020-01-10 13:01] VITALS: BMI 33.6
--- NOTE | 2021-10-15 | PATH_ITS ---
[facility] Accession Number: [id number] . 01 Material submitted: . PART A: sigmoid colon - SIGMOID POLYP PART B: colon - PROXIMAL ANASTOMOSIS PART C: colon - DISTAL ANASTOMOSIS . 02 Diagnosis: A. Sigmoid Colon, Polyp, Biopsy: Tubulovillous adenoma. No evidence of malignancy or high-grade dysplasia. . B. Proximal Anastomosis, Biopsy: Mildly active enteritis. Negative for granulomas, dysplasia and malignancy. . C. Distal Anastomosis, Biopsy: Tubular adenoma. [facility] 10/19/2021 1320 Local . 02 Electronically signed: . Citlali Damon MD, Pathologist NPI- [id number] . 01 Gross description: . Part A: SIGMOID POLYP: Received in formalin are 3 fragment(s) of holcomb, soft tissue measuring 0.5 x 0.5 x 0.5 cm to 0.4 x 0.4 x 0.4 cm submitted entirely in 1 cassette(s) Part B: PROXIMAL ANASTOMOSIS: Received in formalin are multiple fragment(s) of holcomb, soft tissue measuring 1.2 x 0.6 x 0.2 cm in aggregate submitted entirely in 1 cassette(s) Part C: DISTAL ANASTOMOSIS: Received in formalin is 1 fragment(s) of holcomb, soft tissue measuring 0.5 x 0.4 x 0.2 cm submitted entirely in 1 cassette(s) /[facility] 10/18/2021 1849 Local . 02 Pathologist provided ICD-10: D12.6, D12.5 . 02 CPT . 493179, 642423, 646094 Specimen Comment: A courtesy copy of this report has been sent to [phone] Performed at: 01 [facility] [address] [id number] MD Brian Baker MD Phone: [phone] Performed at: 02 [facility] [id number] [place] [id number] MD Citlali Damon MD Phone: [phone]
[2021-10-15 08:37] VITALS: BP 145/76; PULSE 69; RESP 18; TEMP 36.1; O2SAT 98; BMI 31.4
[2021-10-15 08:51] VITALS: BMI 31.4
[2021-10-15] MEDS: LACTATED RINGERS 1,000 ML 42 ML IV (08:52)
--- NOTE | 2021-10-15 08:56 | PM.HP.1 ---
History of Present Illness History of Present Illness Date Patient Seen: 10/15/21 Time Patient Seen: 08:56 Chief complaint: DX COLONOSCOPY Narrative: 71-year-old man with history of colon cancer status post colon resection. He is due for his surveillance colonoscopy. No problems to report. Patient History Medical History Atrial fibrillation Bigeminy Cirrhosis Edema Frequent PVCs GERD (gastroesophageal reflux disease) Hard of hearing Hepatitis HTN (hypertension) Left inguinal hernia Surgical History H/O left inguinal hernia repair (~01/08/20) History of colonoscopy with polypectomy S/P right colectomy (~08/12/20) Family & Social History Family History Brother Hypertension Heart disease Son Lymphoma Social History: household members none Tobacco & Substance use: Tobacco type cigarettes Smoking Status Former smoker alcohol intake former alcohol intake frequency 0-2 drinks per day Substance Use Type does not use Meds Home Medications and Allergies Home Medications Medication Instructions Recorded Confirmed Type diltiazem HCl 360 mg capsule,24 360 mg PO DAILY 01/07/20 08/31/21 History hr,extended release losartan 100 mg tablet 100 mg PO DAILY 01/07/20 08/31/21 History rosuvastatin 5 mg tablet 2.5 mg PO DAILY 01/07/20 08/31/21 History cholecalciferol (vitamin D3) 50 50 mcg PO DAILY 10/08/20 10/15/21 History mcg (2,000 unit) capsule (Vitamin D3) Allergies Allergy/AdvReac Type Severity Reaction Status Date / Time No Known Drug Allergies Allergy Verified 10/15/21 08:50 Exam Vital Signs (past 8 hours): - 10/15/21 08:37 Temperature 97 F L Pulse Rate 69 Respiratory Rate 18 Blood Pressure 145/76 H Pulse Oximetry 98 Oxygen Delivery Method Room Air Const General: healthy appearing Resp Effort & Inspection: normal respiratory effort GI Palpation: soft Assessment & Plan Assessment and plan (1) History of colon cancer: Status: Acute Plan 71-year-old man needing a surveillance colonoscopy due to history of colon cancer. Risks and benefits of colonoscopy reviewed. He would like to proceed. COVID-19 COVID-19 status: Negative Result date/Date tested (Pos, Neg/Pending): 10/14/21 Time Spent With Patient Critical Care time: I spent a total of [] minutes of critical care time on this patient's care today; this time is exclusive of procedural time.
[2021-10-15] MEDS: fentaNYL 250 MCG/5 ML INJ IV (09:20)
[2021-10-15] MEDS: MIDAZOLAM 5 MG/5 ML VIAL IV (09:20)
--- NOTE | 2021-10-15 09:34 | PM.OP.COLON ---
Operative Date/Time/Diagnoses Date of procedure: 10/15/21 Time of procedure: 09:34 Pre-op diagnosis: History of colon cancer Post-op diagnosis: same Procedure & Clinicians Study performed: Surveillance colonoscopy Same procedure as scheduled: Yes Indications: History of colon cancer Surgeon: Candelario Gayle Procedure Notes SCOAP/Timeout: Yes Procedure in detail: Procedure: The patient was brought to the endoscopy suite, placed in left lateral decubitus position. The patient was connected to monitoring devices. A time-out was performed. Sedation was administered. Once the patient was adequately sedated, a digital rectal exam was performed and was normal. The scope was then inserted and advanced to the ileocolic anastomosis. There was some hypertrophied tissue along the anastomosis which could be hypertrophied small bowel mucosa or and adenoma. Several biopsies were taken with cold Jumbo forceps and sent as proximal anastomosis. The scope was then slowly withdrawn over greater than 6 minutes. Mucosa was thoroughly inspected. There was a the mm pedunculated polyp in the descending/sigmoid colon proximal to the distal anastomosis. It was removed with cold snare. There was a small polyp at the distal anastomosis removed with Jumbo forceps. The scope was retroflexed in the rectum. No abnormalities were noted. The scope was straightened and removed. The patient was awakened and brought to recovery. Versed: 5 mg Fentanyl: 75 mcg EBL: 5 mL Findings: Hypertrophied tissue near the proximal anastomosis, pedunculated polyp in the left colon proximal to the distal anastomosis and small polyp at the distal anastomosis Scope withdrawal time: 9 Sedation minutes: 24 Post-procedure Recommendations: Will call with biopsy results Disposition: PACU
[2021-10-15 09:38] VITALS: BP 106/57; PULSE 60; RESP 14; TEMP 36.4; O2SAT 95
[2021-10-15 09:48] VITALS: BP 116/67; BP 120/50; PULSE 56; PULSE 61; RESP 14; RESP 16; O2SAT 96; O2SAT 97
[2021-10-15 09:53] VITALS: BP 129/64; PULSE 62; RESP 16; O2SAT 96
[2021-10-15 09:58] VITALS: BP 129/68; PULSE 60; RESP 16; TEMP 36.7; O2SAT 96
[2021-10-15 10:06] VITALS: BP 129/68; PULSE 62; RESP 18; TEMP 36.2; O2SAT 98
--- NOTE | 2021-10-15 10:21 | SUR.PHASEII ---
10/15/21-1020-ok to go home by Taxi per Dr Gayle.
--- NOTE | 2021-10-15 10:25 | SUR.OPER ---
pt will be traveling to home at discharge via taxi. Dr Gayle aware and gives consent for pt to be discharged.
== END 2021-10-15 10:27 | disposition home or self-care (01) ==
PROVIDERS: PCP Physician Assistant; Referring Provider Surgery; Visit Provider Surgery
PROC: 0DJD8ZZ Inspection of Lower Intestinal Tract, Via Natural or Artificial Opening Endoscopic (ICD-10-PCS; CPT 45378; principal; 2021-10-15 09:30)
DX: Z12.11 Encounter for screening for malignant neoplasm of colon (principal); Z85.038 Personal history of other malignant neoplasm of large intestine; Z90.49 Acquired absence of other specified parts of digestive tract; D12.5 Benign neoplasm of sigmoid colon; D12.6 Benign neoplasm of colon, unspecified; K52.9 Noninfective gastroenteritis and colitis, unspecified
CPT/HCPCS: 45385; 45380; 99152; 99153; J2250; J3010

== ENCOUNTER → 2022-05-12 11:41 | Outpatient (CLI) | payer OTHER, SELFPAY ==
[2020-01-10 13:01] VITALS: BMI 33.6
[2022-05-12 13:42] LABS: Add Manual Diff / Slide Review NO; Basophils Absolute Auto 100 /uL (0-100); Basophils Percent Auto 1.1 % (0-2); Eosinophils Absolute Auto 200 /uL (0-450); Eosinophils Percent Auto 4.1 % (2-4); Hematocrit 35.5 % (41-53); Hemoglobin 12.2 g/dL (13.5-17.5); Lymphocytes Absolute Auto 800 /uL (1100-4500); Lymphocytes Percent Auto 16.2 % (25-40); Mean Corpuscular HGB Conc 34.3 % (30-36); Mean Corpuscular Volume 93.2 fL (80-100); Monocytes Absolute Auto 400 /uL (0-900); Monocytes Percent Auto 8.5 % (3-14); Neutrophils Absolute Auto 3500 /uL (1500-7000); Neutrophils Percent Auto 70.1 % (50-75); Platelet Count 112 X10^3/uL (150-400); Red Blood Cell Count 3.81 X10^6/uL (4.5-5.9); Red Cell Distribution Width 13.6 % (11.6-14.8)
[2022-05-12 13:53] LABS: BUN Creatinine Ratio 20.2 (6-22); Blood Urea Nitrogen 25 mg/dL (9-20); Calcium 8.8 mg/dL (8.4-10.2); Carbon Dioxide 24 mmol/L (22-32); Chloride 104 mmol/L (98-107); Cholesterol 173 mg/dL (140-199); Estimated Glomerular Filt Rate > 60 mL/min (>60); Glucose 92 mg/dL (80-110); HEMOLYSIS < 15 (0-50); Potassium 4.7 mmol/L (3.4-5.1); Sodium 138 mmol/L (137-145); Triglycerides 52 mg/dL (35-150)
[2022-05-12 14:03] LABS: HDL Cholesterol 117 mg/dL (40-60); LDL Cholesterol Calculated 46 mg/dL (<100)
[2022-05-13 17:23] LABS: Hep C Virus Ab w/Reflex Quant NEGATIVE s/c (NEGATIVE)
== END ==
PROVIDERS: PCP Physician Assistant; Referring Provider Internal Medicine Cardiovascular Disease; Visit Provider Internal Medicine Cardiovascular Disease
DX: E78.5 Hyperlipidemia, unspecified (principal); I10 Essential (primary) hypertension; Z11.59 Encounter for screening for other viral diseases
CPT/HCPCS: 36415; 80048; 80061; 85025; 86803

== ENCOUNTER → 2022-05-18 06:34 | Outpatient (CLI) | payer OTHER, SELFPAY ==
[2020-01-10 13:01] VITALS: BMI 33.6
--- NOTE | 2022-05-18 | DI.US.S_ITS ---
PROCEDURE: US ABD AORTA ANEURYSM SCREEN INDICATIONS: Abdominal aortic aneurysm screening TECHNIQUE: Real time scanning was performed of the aorta and iliac arteries, with image documentation. COMPARISON: None. FINDINGS: Aorta: Proximal aortic is not well seen due to bowel gas. Mid-aorta measures approximately 2.3 cm. The views are limited due to bowel gas. Distal aortic diameter is 1.9 cm. Mild plaque. Iliac arteries: Right common iliac artery measures 1.8 cm. Left common iliac artery measures 1.7 cm. Mild plaque bilaterally. IMPRESSION: 1. Normal mid to distal abdominal aorta and bilateral common iliac artery diameters. Dictated by: Paulina Gamez M.D. on 05/18/2022 at 9:20 Approved by: Paulina Gamez M.D. on 05/18/2022 at 9:21
== END ==
PROVIDERS: PCP Physician Assistant; Referring Provider Physician Assistant; Visit Provider Physician Assistant
DX: Z13.6 Encounter for screening for cardiovascular disorders (principal)
CPT/HCPCS: 76706

== ENCOUNTER → 2022-05-19 06:40 | Outpatient (CLI) | payer OTHER, SELFPAY ==
[2020-01-10 13:01] VITALS: BMI 33.6
--- NOTE | 2022-05-19 06:42 | DI.RAD.S_ITS ---
PROCEDURE: XR TIBIA FUBULA RT 2V INDICATIONS: right lower leg injury TECHNIQUE: 2 views of the tibia and fibula were acquired. COMPARISON: None. FINDINGS: Bones: No fractures or dislocations. No suspicious bony lesions. Soft tissues: No suspicious soft tissue calcifications or masses. IMPRESSION: No acute osseous abnormality. If symptoms persist, follow-up radiographs and/or CT may be helpful for further evaluation. Dictated by: Ashutosh Jauregui M.D. on 05/19/2022 at 7:58 Approved by: Ashutosh Jauregui M.D. on 05/19/2022 at 7:59
--- NOTE | 2022-05-19 11:28 | DI.US.S_ITS ---
PROCEDURE: US PERIPH VENOUS LOW EXTREM RT INDICATIONS: RIGHT LEG INJURY TECHNIQUE: Real-time imaging, as well as color and pulse Doppler interrogation, were performed of the lower extremity deep veins from the inguinal ligament to the popliteal fossa. COMPARISON: None. FINDINGS: The common femoral, femoral and popliteal veins are normally compressible, and free of intraluminal thrombus. Color and pulse Doppler demonstrate normal phasic intraluminal flow. There is normal augmentation response to distal compression maneuver. IMPRESSION: No evidence of right lower extremity deep venous thrombosis Dictated by: Ashutosh Jauregui M.D. on 05/19/2022 at 14:01 Approved by: Ashutosh Jauregui M.D. on 05/19/2022 at 14:02
== END ==
PROVIDERS: PCP Physician Assistant; Referring Provider Registered Nurse; Visit Provider Registered Nurse
DX: M79.604 Pain in right leg (principal); I82.409 Acute embolism and thrombosis of unspecified deep veins of unspecified lower extremity
CPT/HCPCS: 73590; 93971

== ENCOUNTER → 2023-02-24 13:20 | Outpatient (CLI) | payer OTHER, SELFPAY ==
[2020-01-10 13:01] VITALS: BMI 33.6
--- NOTE | 2023-02-24 13:21 | DI.CT.S_ITS ---
PROCEDURE: CT ABDOMEN PELVIS W CON INDICATIONS: colon cancer TECHNIQUE: After the administration of oral and IV contrast, axial sections were acquired from the lung bases to the pubic symphysis. Coronal and sagittal reformats were performed. For radiation dose reduction, the following was used: automated exposure control, adjustment of mA and/or kV according to patient size. COMPARISON: [facility], CT, CT CHEST ABDOMEN PELVIS WITH CONTRAST, 07/09/2020, 12:02. FINDINGS: Image quality: Excellent. Lung bases: Mild bibasilar atelectasis. Heart: Heart size appears normal. Moderate atherosclerotic calcifications of the coronary arteries. ABDOMEN: Liver: Redemonstration of moderately lobular liver contour. There is hepatomegaly with diffuse hepatic steatosis. Gallbladder: Gallbladder is unremarkable without CT evidence for acute inflammation. Biliary ducts: No intrahepatic or extrahepatic biliary ductal dilatation identified. Pancreas: Homogeneous enhancement without focal lesions or pancreatic ductal dilatation. No peripancreatic inflammation or organized fluid collections. Spleen: No splenomegaly Adrenal Glands: Unremarkable. Kidneys and Ureters: Kidneys are symmetric in size and enhancement, and there is no obstructive uropathy. No perinephric inflammatory changes. Ureters are normal in course and caliber. Stomach and Bowel: Stomach and small bowel loops appear unremarkable. No evidence for acute inflammatory changes or obstruction. There are postsurgical changes of interval colectomy with surgical anastomosis noted in the lower pelvis. Visualized rectum appears unremarkable. No suspicious soft tissue lesions in the vicinity of surgery. No pelvic sidewall adenopathy. No presacral adenopathy. Peritoneum: No abnormal intraperitoneal fluid. No free air. Ventral Wall: No significant ventral hernia. Abdominal Nodes: No retroperitoneal or mesenteric adenopathy by size criteria. Vessels: Scattered atherosclerotic calcifications of the abdominal aorta and iliac vessels without aneurysmal dilatation. The inferior vena cava appears patent. PELVIS: Pelvic Organs: Prominent prostate gland. Bladder: Mild circumferential urinary bladder wall thickening likely related to incomplete distension. Pelvic Nodes: No enlarged lymph nodes. Miscellaneous: Small fat containing right inguinal hernia. Suspected small right hydrocele. Bones: No acute vertebral body compression fractures. Multilevel spondylitic changes throughout the imaged spine. No suspicious osseous lesions. IMPRESSION: 1. Status post interval colectomy. No evidence for disease recurrence or metastatic disease in the abdomen or pelvis. 2. Hepatic steatosis and hepatomegaly with moderately nodular liver contour as before. 3. Atherosclerosis. Dictated by: Charles Arora M.D. on 02/24/2023 at 16:22 Approved by: Charles Arora M.D. on 02/24/2023 at 16:49
== END ==
PROVIDERS: PCP Physician Assistant; Referring Provider Internal Medicine Hematology & Oncology; Visit Provider Internal Medicine Hematology & Oncology
DX: C18.9 Malignant neoplasm of colon, unspecified (principal); K76.0 Fatty (change of) liver, not elsewhere classified; I25.10 Atherosclerotic heart disease of native coronary artery without angina pectoris; Z90.49 Acquired absence of other specified parts of digestive tract
CPT/HCPCS: 74177; Q9967

== ENCOUNTER 2023-11-28 13:38 | Day surgery (SDC) | payer MEDICARE, SELFPAY ==
[2020-01-10 13:01] VITALS: BMI 33.6
--- NOTE | 2023-11-28 | PATH_ITS ---
[facility] Accession Number: [id number] No. of containers..04 Tissue . 01 Material submitted: . PART A: stomach - ANTRUM ERROSIVE NODULE BIOPSY PART B: colon - ASCENDING POLYP PART C: colon - DESCENDING POLYPS PART D: rectum - RECTUM POLYP . 01 Diagnosis: A. ANTRAL NODULE, BIOPSY: Gastric antral mucosa with reactive foveolar hyperplasia. No evidence of Helicobacter pylori on H/E stain. Negative for intestinal metaplasia. Negative for dysplasia or malignancy. . B. ASCENDING COLON POLYP: Tubular adenoma. . C. DESCENDING COLON POLYPS: Tubular adenoma x1. Hyperplastic polyp x1. . D. RECTAL POLYP: Hyperplastic polyp. [facility] 12/02/2023 1515 Local . 01 Electronically signed: . Darien Giles MD, PhD, Pathologist NPI- [id number] . 01 Gross description: . Part A: ANTRUM ERROSIVE NODULE BIOPSY: Received in formalin is 1 fragment(s) of holcomb, soft tissue measuring 0.2 x 0.2 x 0.1 cm submitted entirely in 1 cassette(s) Part B: ASCENDING POLYP: Received in formalin is 1 fragment(s) of holcomb, soft tissue measuring 0.3 x 0.2 x 0.2 cm submitted entirely in 1 cassette(s) Part C: DESCENDING POLYPS : Received in formalin are 2 fragment(s) of holcomb, soft tissue measuring 0.1 x 0.1 x 0.1 cm to 0.4 x 0.2 x 0.2 cm submitted entirely in 1 cassette(s) Part D: RECTUM POLYP: Received in formalin is 1 fragment(s) of holcomb, soft tissue measuring 0.5 x 0.3 x 0.2 cm submitted entirely in 1 cassette(s) /ALEXA 11/29/2023 2304 Local . 01 Pathologist provided ICD-10: K31.7, D12.2, D12.4, K62.1 . 01 CPT . 301160, 320058, 449473, [id number] Specimen Comment: A courtesy copy of this report has been sent to [phone] Performed at: 01 [facility] [address] [place] [address], [place], [place] [id number] MD Brian Baker MD Phone: [phone]
[2023-11-28 14:31] VITALS: BP 135/76; PULSE 117; RESP 16; TEMP 36.2; O2SAT 98
--- NOTE | 2023-11-28 14:43 | PM.HP.1 ---
History of Present Illness History of Present Illness Date Patient Seen: 11/28/23 Time Patient Seen: 14:43 Chief complaint: EGD & Colonoscopy Narrative: I reviewed my recent office note from 2022. No significant changes. Unfortunately he continues to drink. I explained that he can not have any alcohol in the future. He did not seem to recall our prior discussion on that score. He is here to screen for varices and survey colon polyps and a prior history of colon cancer. [facility] Medical History Hard of hearing Hepatitis Cirrhosis GERD (gastroesophageal reflux disease) Edema Atrial fibrillation Bigeminy Frequent PVCs Left inguinal hernia HTN (hypertension) Surgical History H/O left inguinal hernia repair (~01/08/20) S/P right colectomy (~08/12/20) History of colonoscopy with polypectomy Family History Brother Hypertension Heart disease Son Lymphoma Social History household members: none occupational status: previously employed Smoking Status: Former smoker alcohol intake: former substance use type: does not use Meds Home Medications and Allergies Home Medications Medication Instructions Recorded Confirmed Type diltiazem HCl 360 mg capsule,24 360 mg PO DAILY 01/07/20 11/28/23 History hr,extended release losartan 100 mg tablet 100 mg PO DAILY 01/07/20 11/28/23 History rosuvastatin 5 mg tablet 2.5 mg PO DAILY 01/07/20 11/28/23 History cholecalciferol (vitamin D3) 50 50 mcg PO DAILY 10/08/20 03/10/23 History mcg (2,000 unit) capsule (Vitamin D3) vitamin B complex 1 cap PO DAILY 03/10/23 03/10/23 History Allergies Allergy/AdvReac Type Severity Reaction Status Date / Time No Known Drug Allergies Allergy Verified 11/28/23 14:25 Review of Systems Review of Systems ROS: Yes All systems reviewed with the patient and are negative except as otherwise documented Exam Const General: cooperative HENMT Head: normal to inspection Eyes General: appearance normal, both eyes and all related structures Neck Neck: normal visual inspection Chest Chest: normal inspection of the chest Resp Effort & Inspection: normal respiratory effort Cardio Rate: regular rate GI Inspection: normal to inspection Skin General: no rashes or lesions noted Neuro General: patient alert and patient awake Extrem General: normal to inspection and no pedal edema Psych Appearance: grossly normal Assessment & Plan Assessment & Plan narrative: 73-year-old male with cirrhosis. He has a personal history of colon cancer. EGD and colonoscopy are pursued today.
--- NOTE | 2023-11-28 14:44 | PM.PREOP ---
Pre-operative Note Interval Note History & Physical reviewed/Exam performed by Physician: Yes Changes to H&P: No ASA Class (for procedural sedation): III
[2023-11-28] MEDS: LACTATED RINGERS 1,000 ML 42 ML IV (14:48)
--- NOTE | 2023-11-28 15:36 | PM.OP.EC ---
Operative Date/Time/Diagnoses Date of procedure: 11/28/23 Time of procedure: 15:36 Pre-op diagnosis: Cirrhosis and a personal history of colon cancer Post-op diagnosis: same Procedure & Clinicians Study performed: EGD with biopsies and colonoscopy with hot and cold snare polypectomies Same procedure as scheduled: Yes Indications: Cirrhosis and a personal history of colon cancer Surgeon: Anthony Spence Procedure Notes SCOAP/Timeout: Done Procedure in detail: After the risks and benefits were explained, written and verbal informed consent was obtained. The patient was brought into the procedure room and placed into the left lateral decubitus position. Please see anesthesia notes for sedation details. The scope was introduced into the mouth through the bite block and advanced under direct visualization to the 2nd portion of the duodenum. The scope was slowly withdrawn carefully examining the mucosa for any defects or lesions. Retroflexed views were accomplished in the stomach. The stomach was decompressed, the scope was then removed from the patient who tolerated the procedure well. The patient was then turned around. A digital rectal examination was accomplished. The scope was introduced into the rectum and advanced to right hemicolectomy anastomosis. This was a [id number] anastomosis. The scope was then slowly withdrawn to carefully examine the mucosa for any defects or lesions. Multiple direct views were made through the dentate line for exclusion of pathology. The colon was decompressed the scope was then removed from the patient who tolerated the procedure well. Adult colonoscope Bowel prep adequate Scope withdrawal time: Not applicable Sedation minutes: 20 Complications: none Impression: 1. Duodenal: There was some patchy erythema in the bulb similar to the eroded nodularity that we saw in the stomach. No ulcers no mass lesions no other pathology through into the 2nd portion. 2. Stomach: The patient had a nodular erosive gastropathy consistent with his history of ibuprofen use. No discrete ulcers no outlet obstruction no mass lesions. Biopsy was taken from 1 of the larger nodular eroded areas for histopathology and exclusion of H pylori. Retroflexed views of the LES revealed the presence of sliding hiatal hernia but no varices. 3. Esophagus: The squamocolumnar junction correlated with the top of the gastric folds. GEJ was at 41 cm from the incisors. No acute erosive changes no strictures. No esophageal varices. The esophagus was largely unremarkable. 4. Colon: The patient had a patent [id number] right hemicolectomy anastomosis. There was some erythema associated with the small bowel mucosa that appeared to be related to irritation set up from the sutures. No polyps or mass lesions in this vicinity. In the elvia cecum (ascending colon) there was a small 5 mm polyp removed with cold snare. In the descending colon there were 2 diminutive polyps removed with cold snare. In the rectum there was a slightly larger 6 mm polyp removed with hot snare. Patient had grade 1-2 internal hemorrhoids. No additional pathology was appreciated throughout. Endoscopic diagnosis 1. No varices 2. Erosive gastropathy 3. Small sliding hiatal hernia 4. Colon polyps 5. Hemorrhoids 6. Patent right hemicolectomy anastomosis Post-procedure Plan for aftercare: 1. Await histology. 2. Repeat colonoscopy 1 year 3. Alcohol abstinence was emphasized 4. Consider repeat EGD in 1 year for surveillance if the patient continues drinking. 5. Avoid NSAIDs Disposition: PACU
[2023-11-28 15:40] VITALS: BP 91/58; PULSE 102; RESP 16; O2SAT 97
[2023-11-28 15:43] VITALS: BP 88/53; PULSE 104; RESP 15; TEMP 36.2; O2SAT 96
[2023-11-28 15:46] VITALS: BP 104/60; PULSE 105; RESP 13; O2SAT 96
[2023-11-28 15:50] VITALS: BP 115/78; PULSE 92; RESP 86; O2SAT 98
[2023-11-28 15:52] VITALS: BP 119/79; PULSE 90; RESP 16; O2SAT 98
== END 2023-11-28 16:06 | disposition home or self-care (01) ==
PROVIDERS: PCP Physician Assistant; Referring Provider Internal Medicine Gastroenterology; Visit Provider Internal Medicine Gastroenterology
PROC: 0DJ08ZZ Inspection of Upper Intestinal Tract, Via Natural or Artificial Opening Endoscopic (ICD-10-PCS; CPT 45385; principal; 2023-11-28 14:30)
PROC: 0DJD8ZZ Inspection of Lower Intestinal Tract, Via Natural or Artificial Opening Endoscopic (ICD-10-PCS; CPT 45378; 2023-11-28 14:30)
DX: Z12.11 Encounter for screening for malignant neoplasm of colon (principal); Z85.038 Personal history of other malignant neoplasm of large intestine; Z90.49 Acquired absence of other specified parts of digestive tract; K74.60 Unspecified cirrhosis of liver; K31.9 Disease of stomach and duodenum, unspecified; K44.9 Diaphragmatic hernia without obstruction or gangrene; K64.0 First degree hemorrhoids; I48.91 Unspecified atrial fibrillation; K31.89 Other diseases of stomach and duodenum; D12.2 Benign neoplasm of ascending colon; D12.4 Benign neoplasm of descending colon; K62.1 Rectal polyp
CPT/HCPCS: 45385; 43239; 93005; J2704

== ENCOUNTER → 2024-04-27 11:37 | Outpatient (CLI) | payer MEDICARE, SELFPAY ==
[2020-01-10 13:01] VITALS: BMI 33.6
[2024-04-27 12:48] LABS: BUN Creatinine Ratio 18.8 (6-22); Blood Urea Nitrogen 25 mg/dL (9-20); Calcium 9.5 mg/dL (8.4-10.2); Carbon Dioxide 22 mmol/L (22-32); Chloride 104 mmol/L (98-107); Cholesterol 180 mg/dL (140-199); Estimated Glomerular Filt Rate 55 mL/min (>60); Glucose 101 mg/dL (80-110); Potassium 4.8 mmol/L (3.4-5.1); Sodium 136 mmol/L (137-145); Triglycerides 64 mg/dL (35-150)
[2024-04-27 12:55] LABS: HEMOLYSIS < 15 (0-50)
[2024-04-27 12:56] LABS: HDL Cholesterol 115 mg/dL (40-60); LDL Cholesterol Calculated 52 mg/dL (<100)
== END ==
LOC: LAB 11:38
PROVIDERS: PCP Physician Assistant; Referring Provider Internal Medicine Cardiovascular Disease; Visit Provider Internal Medicine Cardiovascular Disease
DX: E78.5 Hyperlipidemia, unspecified (principal); I10 Essential (primary) hypertension
CPT/HCPCS: 36415; 80048; 80061

== ENCOUNTER → 2024-07-20 07:36 | Outpatient (CLI) | payer MEDICARE, SELFPAY ==
[2020-01-10 13:01] VITALS: BMI 33.6
--- NOTE | 2024-07-20 07:37 | DI.ECHO.S_ITS ---
[facility]+ [facility] : : [id number] : [place] : : [id number] : : Phone: [phone] Echocardiogram Report + + :Name: KRISTINA WHEELER Study Date: 07/20/2024 Height: 66 in : :[facility] ReadingLocation: Weight: 209 lb : : Gender: Male BSA: 2.0 m2 : :: 1950 Age: 74 yrs BP: 152/85 mmHg: :Reason For Study: Afib : :Ordering Physician: HAJA, : :KARTHIKEYAN Performed By: Alexandra Bose : :Referring: KARTHIKEYAN CONSTANTINO : + + Interpretation Summary 1) Mildly increased left ventricular thickness (concentric) with normal size, normal wall motion, and normal systolic function (EF 65-70%). 2) Mildly enlarged right ventricle with low normal function. 3) No significant valvular abnormalities. 4) Compared to the Echo done 09/11/2019, no significant change. Procedure: A two-dimensional transthoracic echocardiogram with color flow and Doppler was performed. The study quality was technically adequate. Comparison is made with the echocardiogram of 09/11/2019. The patient was in atrial fibrillation with heart rates between 43-112 bpm during the exam. Left Ventricle: The left ventricle is normal in size. There is mild concentric left ventricular hypertrophy. The ejection fraction is estimated to be 65-70%. Diastolic function could not be accurately assessed due to atrial fibrillation. Right Ventricle: The right ventricle is mildly dilated. Right ventricular systolic function is at the lower limits of normal. Atria: The left atrium is moderately dilated. The right atrium is moderately dilated. There is no Doppler evidence for an interatrial shunt. Lipomatous hypertrophy of the interatrial septum is noted. Mitral Valve: The mitral valve leaflets appear mildly thickened, but open well. The mitral valve leaflets are moderately calcified. The mitral papillary muscle appears thickened and/or calcified. There is moderate mitral annular calcification. No significant mitral valve stenosis. There is trace mitral regurgitation. Aortic Valve: The aortic valve is trileaflet. The aortic valve opens well. The aortic valve is mildly calcified. There is no aortic valve stenosis. No aortic regurgitation is present. Tricuspid Valve: The tricuspid valve leaflets are thin and pliable. No tricuspid regurgitation. The right ventricular systolic pressure is estimated to be at least 30 mmHg based on an estimated right atrial pressure of 3 mm Hg. Pulmonic Valve: The pulmonic valve is not well seen, but is grossly normal. There is a trace or physiologic amount of pulmonic regurgitation. Great Vessels: The aortic root is normal size. The ascending aorta is normal in size. The aortic arch could not be visualized. The pulmonary artery is not well visualized, but is probably normal size. The IVC is of normal diameter and collapses greater than 50% with a sniff. This suggests a low right atrial pressure of 3 mm Hg. Pericardium/ Pleura There is no pericardial effusion. There is no pleural effusion. MMode/2D Measurements & Calculations LVIDd: 4.5 cm LVOT diam: 2.4 cm LVIDs: 3.0 cm Ao root diam: 3.6 cm FS: 33.4 % asc Aorta Diam: 3.4 cm EPSS: 0.83 cm IVSd: 1.1 cm LVPWd: 0.91 cm LV martins. diameter/BSA (cm/m^2): 2.2 LV sys. diameter/BSA (cm/m^2): 1.5 LA A2 area: 25.0 cm2 RA long axis: 7.3 cm LA A4 area: 26.1 cm2 RA area: 29.1 cm2 LA length (vol): 7.2 cm RA vol: 98.7 ml LA vol: 76.8 ml RA : 48.4 ml/m2 LA vol index: 37.7 ml/m2 IVC diam: 1.9 cm TAPSE: 1.4 cm Doppler Measurements & Calculations Ao V2 max: 104.1 cm/sec LVOT Max Prosper: 94.8 cm/sec Ao V2 mean: 71.5 cm/sec LV V1 max P.6 mmHg Ao max P.3 mmHg LV V1 VTI: 20.1 cm Ao mean P.3 mmHg MARGOT(I,D): 4.4 cm2 Ao V2 VTI: 20.9 cm MARGOT(V,D): 4.2 cm2 sev ratio: 0.96 MARGOT indexed to BSA (cm^2/m^2): 2.2 MV E max prosper: 136.7 cm/sec TR max prosper: 256.1 cm/sec MV A max prosper: 29.7 cm/sec TR max P.5 mmHg MV E/A: 4.6 PA V2 max: 91.7 cm/sec MV dec time: 0.18 sec PA V2 mean: 65.3 cm/sec MVA(VTI): 3.7 cm2 PA mean P.9 mmHg PA pr(Accel): 55.0 mmHg MV V2 mean: 68.2 cm/sec SV(LVOT): 92.5 ml MV mean P.9 mmHg MV V2 VTI: 25.2 cm Reading Physician:02:23 PM
== END ==
PROVIDERS: PCP Physician Assistant; Referring Provider Internal Medicine Cardiovascular Disease; Visit Provider Internal Medicine Cardiovascular Disease
DX: I48.19 Other persistent atrial fibrillation (principal); I34.81 Nonrheumatic mitral (valve) annulus calcification
CPT/HCPCS: 93306

== ENCOUNTER → 2024-08-07 11:11 | Outpatient (CLI) | payer MEDICARE, SELFPAY ==
[2020-01-10 13:01] VITALS: BMI 33.6
[2024-08-07 11:50] LABS: Hematocrit 36.8 % (41-53); Hemoglobin 12.4 g/dL (13.5-17.5); Mean Corpuscular HGB Conc 33.6 % (30-36); Mean Corpuscular Hemoglobin 33.1 PG (26-34); Mean Corpuscular Volume 98.6 fL (80-100); Platelet Count 103 X10^3/uL (150-400); Red Blood Cell Count 3.73 X10^6/uL (4.5-5.9); Red Cell Distribution Width 15.2 % (11.6-14.8); White Blood Cell Count 6.4 X10^3/uL (4.5-11.0)
[2024-08-07 12:10] LABS: BUN Creatinine Ratio 13.9 (6-22); Blood Urea Nitrogen 19 mg/dL (9-20); Calcium 9.5 mg/dL (8.4-10.2); Carbon Dioxide 24 mmol/L (22-32); Chloride 104 mmol/L (98-107); Cholesterol 200 mg/dL (140-199); Estimated Glomerular Filt Rate 53 mL/min (>60); Glucose 112 mg/dL (80-110); HEMOLYSIS < 15 (0-50); Potassium 3.8 mmol/L (3.4-5.1); Sodium 135 mmol/L (137-145); Triglycerides 98 mg/dL (35-150)
[2024-08-07 12:18] LABS: HDL Cholesterol 158 mg/dL (40-60); LDL Cholesterol Calculated 22 mg/dL (<100)
== END ==
PROVIDERS: PCP Physician Assistant; Referring Provider Internal Medicine Cardiovascular Disease; Visit Provider Internal Medicine Cardiovascular Disease
DX: I48.19 Other persistent atrial fibrillation (principal); E78.5 Hyperlipidemia, unspecified
CPT/HCPCS: 36415; 80048; 80061; 85027